=== PATIENT | female | born 1975 ===

== ENCOUNTER 2021-10-27 05:01 | Emergency (ER) | payer SELFPAY ==
[2021-10-27 09:43] VITALS: BP 140/82
[2021-10-27] MEDS ORDERED: ACETAMINOPHEN 500 MG TAB PO ONE (10:12)
== END 2021-10-27 11:04 | disposition home or self-care (01) ==
LOC: ED 05:01
DX: J32.9 Chronic sinusitis, unspecified (principal); S09.90XA Unspecified injury of head, initial encounter; E11.8 Type 2 diabetes mellitus with unspecified complications; X58.XXXA Exposure to other specified factors, initial encounter; Y93.89 Activity, other specified; Y92.89 Other specified places as the place of occurrence of the external cause; Y99.8 Other external cause status
CPT/HCPCS: 70450; 99284